=== PATIENT | female | born 1955 | race Caucasian/White ===

== ENCOUNTER 2017-03-28 09:55 | Outpatient (CLI) | payer OTHER | END 2017-03-28 09:56 | disposition home or self-care (01) | LOC: BICMAMMO 09:55 | PROVIDERS: ATTEND Family Medicine | DX: Z12.31 Encounter for screening mammogram for malignant neoplasm of breast (principal) | CPT/HCPCS: 77067 ==

== ENCOUNTER 2020-12-13 20:25 | Inpatient (IN) | payer MEDICARE, MEDICAID ==
[2020-12-13 23:28] VITALS: BMI 31.9
[2020-12-14] MEDS ORDERED: Nitroglycerin 0.4 MG TAB (25 Tab Bottle) SL PRN (01:50)
[2020-12-14] MEDS ORDERED: Dextrose 50% Abboject 50 ML SYRINGE SLOW IVP PRN (01:52)
[2020-12-14] MEDS ORDERED: Dextrose 5% in Water 1,000 ML IV PRN (01:52)
[2020-12-14] MEDS ORDERED: HumaLOG 300 UNITS/3 ML VIAL SC PRN (01:52)
[2020-12-14 02:33] LABS: Troponin I 0.031 ng/mL (< 0.028)
[2020-12-14 02:38] LABS: Uric Acid 9.3 mg/dL (2.6-6.0)
[2020-12-14] MEDS ORDERED: Ondansetron PF 4 MG/2 ML Vial IVP PRN (04:48)
[2020-12-14 05:28] LABS: #Eosinphils 0.3 thou/uL (0.0-0.7); #Lymphocytes 3.2 thou/uL (1.20-3.40); #Monocytes 0.7 thou/uL (0.11-0.59); #Neutrophils 2.9 thou/uL (1.40-6.50); %Basophils 0.4 % (0.0-1.0); %Lymphocytes 44.6 % (21.0-51.0); %Neutrophils 41.1 % (42.0-75.0); Hemoglobin 9.5 g/dL (12.0-16.0); Mean Corpuscular Hemoglobin 29.1 pg (27.0-31.0); Mean Corpuscular Volume 85.5 fL (78.0-98.0); Mean Platelet Volume 7.8 fL (7.4-10.4); Platelet Count 161 thou/uL (130-400); Red Blood Cell (RBC) Count 3.26 mill/uL (4.20-5.40); White Blood Cell (WBC) Count 7.1 thou/uL (4.8-10.8)
[2020-12-14 05:52] LABS: Anion Gap 13 mmol/L (10-20); BUN (Urea Nitrogen) 11 mg/dL (9.8-20.1); Calc. Creatinine Clearance 92 mL/min (70-130); Calcium 9.6 mg/dL (7.8-10.44); Carbon Dioxide 25 mmol/L (23-31); Chloride 107 mmol/L (98-107); Glucose 112 mg/dL (80-115); Potassium 4.3 mmol/L (3.5-5.1); Sodium 141 mmol/L (136-145)
[2020-12-14] MEDS: Levothyroxine Sodium 75 MCG TAB PO SCH (06:05)
[2020-12-14] MEDS: Amlodipine 10 MG TAB PO SCH (09:08)
[2020-12-14] MEDS: Cholecalciferol 1,000 UNITS (25 MCG) TAB PO SCH (09:09)
[2020-12-14] MEDS: Aspirin 81 mg Enteric Coated Tablet PO SCH (09:09)
[2020-12-14] MEDS: Cyanocobalamin (Vitamin B-12) 1,000 MCG TAB PO SCH (09:09)
[2020-12-14] MEDS: Ezetimibe 10 MG TAB PO SCH (09:09)
[2020-12-14] MEDS: Hydrochlorothiazide 25 MG TAB PO SCH (09:10)
[2020-12-14] MEDS: Magnesium Oxide 400 MG TAB PO SCH (09:11)
[2020-12-14] MEDS: Losartan 25 MG TAB PO SCH (09:11)
[2020-12-14] MEDS: Multivit, Therapeutic 1 TAB PO SCH (09:12)
[2020-12-14] MEDS: Potassium Chloride 10 MEQ TAB PO SCH (09:12)
[2020-12-14] MEDS: Metoprolol Tartrate 50 MG TAB PO SCH ×2 (09:12→20:54)
[2020-12-14] MEDS ORDERED: Lorazepam 0.5 MG TAB PO SCH (09:47)
[2020-12-14 12:13] LABS: SARS-CoV-2 PCR by NAA Not Detected (NotDetected)
[2020-12-14 13:10] LABS: Troponin I 0.043 ng/mL (< 0.028)
[2020-12-14] MEDS: Ibuprofen 600 MG TAB PO PRN ×2 (17:06→20:53)
[2020-12-14] MEDS: Atorvastatin Calcium 40 MG TAB PO SCH (20:52)
[2020-12-15] MEDS: Levothyroxine Sodium 75 MCG TAB PO SCH (05:46)
[2020-12-15 10:02] LABS: Troponin I 0.046 ng/mL (< 0.028)
[2020-12-15] MEDS: Amlodipine 10 MG TAB PO SCH (12:50)
[2020-12-15] MEDS: Cholecalciferol 1,000 UNITS (25 MCG) TAB PO SCH (12:50)
[2020-12-15] MEDS: Aspirin 81 mg Enteric Coated Tablet PO SCH (12:50)
[2020-12-15] MEDS: Allopurinol 100 MG TAB PO SCH (12:50)
[2020-12-15] MEDS: Ezetimibe 10 MG TAB PO SCH (12:51)
[2020-12-15] MEDS: Hydrochlorothiazide 25 MG TAB PO SCH (12:51)
[2020-12-15] MEDS: Cyanocobalamin (Vitamin B-12) 1,000 MCG TAB PO SCH (12:51)
[2020-12-15] MEDS: Losartan 25 MG TAB PO SCH (12:51)
[2020-12-15] MEDS: Metoprolol Tartrate 50 MG TAB PO SCH ×2 (12:52→21:15)
[2020-12-15] MEDS: Multivit, Therapeutic 1 TAB PO SCH (12:52)
[2020-12-15] MEDS: Magnesium Oxide 400 MG TAB PO SCH (12:52)
[2020-12-15] MEDS: Potassium Chloride 10 MEQ TAB PO SCH (12:52)
[2020-12-15] MEDS ORDERED: Lorazepam 1 MG TAB PO SCH ×2 (15:00→16:45)
[2020-12-15] MEDS: Atorvastatin Calcium 40 MG TAB PO SCH (21:13)
[2020-12-16] MEDS: Levothyroxine Sodium 75 MCG TAB PO SCH (05:39)
[2020-12-16] MEDS: Aspirin 81 mg Enteric Coated Tablet PO SCH (08:11)
[2020-12-16] MEDS: Hydrochlorothiazide 25 MG TAB PO SCH (08:12)
[2020-12-16] MEDS: Amlodipine 10 MG TAB PO SCH (08:12)
[2020-12-16] MEDS: Allopurinol 100 MG TAB PO SCH (08:13)
[2020-12-16] MEDS: Cyanocobalamin (Vitamin B-12) 1,000 MCG TAB PO SCH (08:14)
[2020-12-16] MEDS: Cholecalciferol 1,000 UNITS (25 MCG) TAB PO SCH (08:15)
[2020-12-16] MEDS ORDERED: Regadenoson 0.4 MG/5 ML SYRINGE ONE (11:37)
[2020-12-16] MEDS: Multivit, Therapeutic 1 TAB PO SCH (13:05)
[2020-12-16] MEDS: Metoprolol Tartrate 50 MG TAB PO SCH ×2 (13:06→20:55)
[2020-12-16] MEDS: Losartan 25 MG TAB PO SCH (13:06)
[2020-12-16] MEDS: Magnesium Oxide 400 MG TAB PO SCH (13:08)
[2020-12-16] MEDS: Ezetimibe 10 MG TAB PO SCH (13:08)
[2020-12-16] MEDS: Potassium Chloride 10 MEQ TAB PO SCH (13:09)
[2020-12-16] MEDS ORDERED: Lorazepam 1 MG TAB PO SCH (15:00)
[2020-12-16] MEDS: Atorvastatin Calcium 40 MG TAB PO SCH (20:55)
[2020-12-17] MEDS: Ibuprofen 600 MG TAB PO PRN (05:12)
[2020-12-17] MEDS: Levothyroxine Sodium 75 MCG TAB PO SCH (05:13)
[2020-12-17 08:34] VITALS: TEMP 97.8
[2020-12-17] MEDS: Hydrochlorothiazide 25 MG TAB PO SCH (08:58)
[2020-12-17] MEDS: Aspirin 81 mg Enteric Coated Tablet PO SCH (08:58)
[2020-12-17] MEDS: Cyanocobalamin (Vitamin B-12) 1,000 MCG TAB PO SCH (08:59)
[2020-12-17] MEDS: Cholecalciferol 1,000 UNITS (25 MCG) TAB PO SCH (08:59)
[2020-12-17] MEDS: Magnesium Oxide 400 MG TAB PO SCH (08:59)
[2020-12-17] MEDS: Amlodipine 10 MG TAB PO SCH (08:59)
[2020-12-17] MEDS: Ezetimibe 10 MG TAB PO SCH (08:59)
[2020-12-17] MEDS: Potassium Chloride 10 MEQ TAB PO SCH (08:59)
[2020-12-17] MEDS: Metoprolol Tartrate 50 MG TAB PO SCH (08:59)
[2020-12-17] MEDS: Multivit, Therapeutic 1 TAB PO SCH (09:00)
[2020-12-17] MEDS: Allopurinol 100 MG TAB PO SCH (09:00)
[2020-12-17] MEDS: Losartan 25 MG TAB PO SCH (09:09)
[2020-12-17 12:27] VITALS: BP 114/84
[2020-12-17 13:28] LABS: CKMB 3.5 ng/mL (0-6.6)
== END 2020-12-17 13:10 | disposition home or self-care (01) | DRG 880 ==
LOC: NEURO 20:25 → OBSVTOIN 12-15 12:15
PROVIDERS: ADMIT Internal Medicine; ATTEND Internal Medicine
DX: F41.9 Anxiety disorder, unspecified (principal); Z20.822 Contact with and (suspected) exposure to COVID-19; R07.89 Other chest pain; R26.81 Unsteadiness on feet; E11.9 Type 2 diabetes mellitus without complications; I25.10 Atherosclerotic heart disease of native coronary artery without angina pectoris; I10 Essential (primary) hypertension; E89.0 Postprocedural hypothyroidism; M10.9 Gout, unspecified; H93.8X2 Other specified disorders of left ear; F32.A Depression, unspecified; E78.00 Pure hypercholesterolemia, unspecified; M54.2 Cervicalgia; G40.909 Epilepsy, unspecified, not intractable, without status epilepticus; Z88.8 Allergy status to other drugs, medicaments and biological substances; Z79.82 Long term (current) use of aspirin; Z79.899 Other long term (current) drug therapy; Z90.710 Acquired absence of both cervix and uterus; Z98.51 Tubal ligation status; Z90.89 Acquired absence of other organs
CPT/HCPCS: 36415; 36416; 70496; 70498; 78452; 80048; 80061; 80164; 82553; 84484; 84550; 85025; 93017; 93306; A9500; G0378; J2785; U0003; U0005

== ENCOUNTER 2022-01-07 23:43 | Emergency (ER) | payer OTHER | END 2022-01-08 02:42 | disposition home or self-care (01) | LOC: ERS 23:43 | DX: R42 Dizziness and giddiness (principal); R77.8 Other specified abnormalities of plasma proteins; N39.0 Urinary tract infection, site not specified; E11.9 Type 2 diabetes mellitus without complications; E78.00 Pure hypercholesterolemia, unspecified; I10 Essential (primary) hypertension | CPT/HCPCS: 36415; 93005 ==

== ENCOUNTER 2024-12-27 08:09 | Outpatient (CLI) | payer OTHER | END 2024-12-27 08:10 | disposition home or self-care (01) | LOC: ULT 08:09 | PROVIDERS: ATTEND Family Medicine | DX: N39.0 Urinary tract infection, site not specified (principal) | CPT/HCPCS: 76770 ==